=== PATIENT | female | born 1995 | race American Indian/Alaskan Native ===

== ENCOUNTER 2016-11-10 16:21 | Emergency (ER) | payer OTHER ==
[2016-11-10 16:21] VITALS: BMI 21.4
[2016-11-10 16:28] VITALS: TEMP 97.4
--- NOTE | 2016-11-10 16:58 | ED PDOC ---
Syncope/Near Syncope/Dizzyness Time Seen by Provider: 11/10/16 16:29 Chief Complaint (Nursing): Syncope Chief Complaint (Provider): syncope History Per: Patient History/Exam Limitations: no limitations Onset/Duration Of Symptoms: Mins (prior to arrival ) Current Symptoms Are (Timing): Still Present Number Of Syncopal Episodes: 1 Additional Complaint(s): Nakia Rossi is a 21 year old female, with no previous medical history, who presents to the ED via EMS after experiencing a syncopic episode while at work prior to arrival which was witnessed by her coworkers. Pt reports to enduring a stressful situation at work which caused her to hyperventilate and pass out. Pt reports to vomiting afterwards. Pt denies any seizure activities. Pt denies a history of depression or taking any medication. Pt states symptoms subsided but states to developing a headache. Pt denies any other medical complaints. PMD: none provided Past Medical History Reviewed: Historical Data, Nursing Documentation, Vital Signs Vital Signs: Last Vital Signs Temp 97.4 F L 11/10/16 16:25 Pulse 100 H 11/10/16 16:25 Resp 16 11/10/16 16:25 BP 119/75 11/10/16 16:25 Pulse Ox 99 11/10/16 16:25 - Medical History PMH: No Chronic Diseases - Family History Family History: States: Unknown Family Hx - Immunization History Hx Tetanus Toxoid Vaccination: No Hx Influenza Vaccination: No Hx Pneumococcal Vaccination: No - Home Medications Home Medications: Ambulatory Orders Medication Instructions Recorded No Known Home Med 04/04/16 - Allergies Allergies/Adverse Reactions: Allergies Allergy/AdvReac Type Severity Reaction Status Date / Time fluconazole [From Diflucan] Allergy RASH Verified 11/10/16 16:25 nut - unspecified Allergy RASH Verified 11/10/16 16:25 Penicillins Allergy RASH Verified 11/10/16 16:25 Review of Systems ROS Statement: Except As Marked, All Systems Reviewed And Found Negative Respiratory: Positive for: Other (hyperventilated ) Neurological: Positive for: Headache, Other (syncope) Physical Exam - Reviewed Nursing Documentation Reviewed: Yes Vital Signs Reviewed: Yes - Physical Exam Appears: Positive for: Well, Non-toxic, No Acute Distress Head Exam: Positive for: ATRAUMATIC, NORMAL INSPECTION, NORMOCEPHALIC Skin: Positive for: Normal Color, Warm, DRY Eye Exam: Positive for: EOMI, Normal appearance, PERRL ENT: Positive for: Normal ENT Inspection Neck: Positive for: Normal, Painless ROM Cardiovascular/Chest: Positive for: Regular Rate, Rhythm Respiratory: Positive for: CNT, Normal Breath Sounds Gastrointestinal/Abdominal: Positive for: Normal Exam, Bowel Sounds, Soft Back: Positive for: Normal Inspection Extremity: Positive for: Normal ROM Neurologic/Psych: Positive for: Alert, Oriented - Laboratory Results Result Diagrams: 11/10/16 17:26 11/10/16 17:26 - ECG ECG: Positive for: Interpreted By Me, Viewed By Me ECG Rhythm: Positive for: Normal QRS, Normal ST Segment, Sinus Rhythm. Negative for: ST/T Changes Rate: 96 O2 Sat by Pulse Oximetry: 99 (RA) Pulse Ox Interpretation: Normal Medical Decision Making Medical Decision Making: Initial Impression: syncope differentials include cardiac arrhythmia vs pulmonary embolism Initial Plan: * EKG * D-dimer * CT head w/o contrast * troponin I * urine drug screen * labs * reevaluation * * C head no acute findings * Scribe Attestation: Documented by Soledad Colón, acting as a scribe for Rashid De Guzman MD Provider Scribe Attestation: All medical record entries made by the Scribe were at my direction and personally dictated by me. I have reviewed the chart and agree that the record accurately reflects my personal performance of the history, physical exam, medical decision making, and the department course for this patient. I have also personally directed, reviewed, and agree with the discharge instructions and disposition. Disposition - Clinical Impression Clinical Impression: Syncope - Patient ED Disposition Is Patient to be Admitted: No Doctor Will See Patient In The: Office Counseled Patient/Family Regarding: Studies Performed, Diagnosis, Need For Followup - Disposition Referrals: [facility] [Outside] Disposition: Routine/Home Disposition Time: 18:55 Condition: GOOD Additional Instructions: Follow up with your PCP in 2-3 days. Return for worsening. Instructions: Syncope (ED)
[2016-11-10 17:46] LABS: BASO % 0.8 % (0.0-2.0); EOS % 0.1 % (0.0-4.0); HEMATOCRIT 36.1 % (34.0-47.0); LYMPH # 1.1 K/uL (1.0-4.3); LYMPH % 18.2 % (20.0-40.0); MEAN CELL VOLUME 90.6 fl (81.0-99.0); MEAN CORPUSCULAR HGB CONC 33.1 g/dL (33.0-37.0); MONO # 0.5 K/uL (0.0-0.8); MONO % 7.9 % (0.0-10.0); NEUT # 4.4 K/uL (1.8-7.0); RED CELL DISTRIBUTION WIDTH 14.3 % (11.5-14.5)
[2016-11-10 18:25] LABS: BLOOD UREA NITROGEN 9 mg/dl (7-17); CALCIUM 9.2 mg/dL (8.4-10.2); CARBON DIOXIDE 22 mmol/L (22-30); CHLORIDE 104 mmol/L (98-107); GFR AFRICAN-AMERICAN > 60; GLUCOSE,RANDOM 95 mg/dL (65-105); POTASSIUM 3.7 MMOL/L (3.6-5.0); SODIUM 137 mmol/l (132-148)
[2016-11-10 21:26] VITALS: BP 122/76; RESP 18
--- NOTE | 2016-11-11 07:13 | CARD ---
APPROVED REPORT EKG Measurement Heart [id number] <Conclusion> Normal sinus rhythm Normal ECG
--- NOTE | 2016-11-11 10:09 | CT ---
PROCEDURE: CT HEAD WITHOUT CONTRAST. HISTORY: syncope COMPARISON: None available. TECHNIQUE: Axial computed tomography images were obtained through the head/brain without intravenous contrast. Radiation dose: Total exam DLP = 759.96 mGy-cm. FINDINGS: HEMORRHAGE: No intracranial hemorrhage. BRAIN: No mass effect or edema. The fritz-white matter differentiation appears intact. VENTRICLES: No hydrocephalus. CALVARIUM: Unremarkable. PARANASAL SINUSES: Unremarkable as visualized. No significant inflammatory changes. MASTOID AIR CELLS: Unremarkable as visualized. No inflammatory changes. OTHER FINDINGS: None. IMPRESSION: No acute intracranial pathology identified. Preliminary impression was provided by virtual radiologic.
[2016-11-11 10:45] VITALS: O2SAT 99
[2016-11-11 10:47] VITALS: PULSE 96
== END 2016-11-10 20:44 | disposition home or self-care (01) ==
LOC: H.ER 16:21
DX: R55 Syncope and collapse (principal)